=== PATIENT | female | born 1960 | race Caucasian/White ===

== ENCOUNTER → 2022-07-05 | Outpatient (CLI) | payer OTHER ==
[2022-07-05 18:12] LABS: HCT 39.1 % (37.2-46.3); HGB 13.2 g/dL (12.0-15.0); MCH 32.3 pg (27.0-32.0); MCHC 33.8 g/dL (32.0-37.0); MCV 95.6 fL (80.0-97.0); NRBC Per 100 WBC 0 /100 WBCS (0.0-0.0); Platelet Count 232 X 10*3/uL (140-440); RBC 4.09 X 10*6/uL (4.10-5.20); WBC 5.29 X 10*3/uL (4.50-10.00)
[2022-07-05 18:21] LABS: ALT 23 U/L (8-44); AST 29 U/L (13-35); Albumin 4.1 g/dL (3.8-4.9); Albumin/Globulin Ratio 1.55 (1.60-3.17); Alkaline Phosphatase 125 U/L (41-126); BUN/Creat Ratio 18.16 Ratio (12.00-20.00); Blood Urea Nitrogen 13.4 mg/dL (9.0-27.0); Carbon Dioxide 26.5 mmol/L (20.0-27.5); Chloride 101 mmol/L (96-109); Chol/HDL Ratio 3.76 Ratio; Globulin 2.6 g/dL (1.6-3.3); Glucose 90 mg/dL (70-110); Non-African American GFR(CKD) 87.1 (60.0-200.0); Potassium 4.7 mmol/L (3.5-5.5); Sodium 138 mmol/L (135-145); Total Protein 6.7 g/dL (6.2-8.2); VLDL Calculation 16.04 mg/dL (5.00-40.00)
[2022-07-05 18:24] LABS: Appearance,Urine Clear (Clear); Bilirubin,Urine Negative (Negative); Blood,Urine Negative (Negative); Color,Urine Yellow (Yellow); Ketones,Urine Negative (Negative); Nitrite,Urine Negative (Negative); Urobilinogen,Urine 0.2 (0.2,1.0)
== END | disposition home or self-care (01) ==
LOC: LABWHC1 12:01
PROVIDERS: ATTEND Family Medicine
DX: E66.01 Morbid (severe) obesity due to excess calories (principal)
CPT/HCPCS: 36415; 80053; 80061; 81003; 82306; 83036; 84439; 84443; 85027

== ENCOUNTER → 2022-07-16 | Outpatient (CLI) | payer OTHER ==
--- NOTE | 2022-07-20 20:21 | MM ---
Reason for Exam: Screening (asymptomatic). Last mammogram was performed 3 year(s) and 1 month(s) ago. Patient History: First Full-Term at age 29. Postmenopausal. Sister had breast cancer at or over age 50. Risk Values: Carina 5 year model risk: 2.7%. NCI Lifetime model risk: 12.1%. Prior Study Comparison: 06/29/2016 Bilateral MG screening mammo w CAD - 2, [facility]. 05/28/2019 Bilateral MG screening mammo w CAD - 2, [facility]. 06/11/2019 Right MG diagnostic mammo RT w CAD - 2, [facility]. Tissue Density: The breast tissue is heterogeneously dense. This may lower the sensitivity of mammography. Findings: Analyzed By CAD. Benign bilateral oil cyst calcifications. There is no suspicious group of microcalcifications or new suspicious mass in either breast. Overall Assessment: Benign, BI-RAD 2 Management: Screening Mammogram of both breasts in 1 year. 1. Patient should continue monthly self breast exams. 2. A clinical breast exam by your physician is recommended on an annual basis. 3. This exam should not preclude additional follow-up of suspicious palpable abnormalities. Electronically signed and approved by: Kelsy Campbell M.D. Radiologist
== END | disposition home or self-care (01) ==
LOC: RADMAMWWP 13:31
PROVIDERS: ATTEND Family Medicine
DX: Z12.31 Encounter for screening mammogram for malignant neoplasm of breast (principal); Z78.0 Asymptomatic menopausal state; Z80.3 Family history of malignant neoplasm of breast
CPT/HCPCS: 77063; 77067

== ENCOUNTER 2023-06-01 09:08 | Emergency (ER) | payer OTHER ==
[2023-06-01 09:36] VITALS: RESP 18
[2023-06-01 09:46] LABS: Basophils % (A) 0 %; Eosinophils # (A) 0.1 k/uL (0-0.7); Eosinophils % (A) 2 %; HCT 39.7 % (34.0-46.0); HGB 13.3 gm/dL (11.4-16.0); Lymphocytes # (A) 1.8 k/uL (1.0-4.8); Lymphocytes % (A) 29 %; MCH 32.7 pg (25.0-35.0); MCHC 33.6 g/dL (31.0-37.0); MCV 97.3 fL (80.0-100.0); Mean Platelet Volume 7.5; Monocytes # (A) 0.3 k/uL (0-1.0); Monocytes % (A) 5 %; Neutrophils # (A) 3.7 k/uL (1.3-7.7); Neutrophils % (A) 62 %; Platelet Count 210 k/uL (150-450); RBC 4.08 m/uL (3.80-5.40); RDW 11.6 % (11.5-15.5); WBC 6.1 k/uL (3.8-10.6)
--- NOTE | 2023-06-01 09:54 | XR ---
EXAMINATION TYPE: XR chest 2V DATE OF EXAM: 06/01/2023 COMPARISON: NONE TECHNIQUE: PA and lateral views submitted. HISTORY: Chest FINDINGS: The lungs are clear and there is no pneumothorax, pleural effusion, or focal pneumonia. Heart size normal and no overt failure. Osseous structures demonstrate hypertrophic and degenerative changes of the spine. Slight elevation right hemidiaphragm. AC joint arthropathy. Biapical pleural thickening. IMPRESSION: 1. No acute process.
[2023-06-01 09:58] LABS: Partial Thromboplastin Time 25.9 sec (22.0-30.0); Prothrombin Time 10.8 sec (10.0-12.5)
[2023-06-01 09:59] LABS: ALT 28 U/L (4-34); African American GFR (CKD) >90 (>60 ml/min/1.73 sqM); Anion Gap 11 mmol/L; Blood Urea Nitrogen 21 mg/dL (7-17); Calcium 9.2 mg/dL (8.4-10.2); Carbon Dioxide 25 mmol/L (22-30); Chloride 102 mmol/L (98-107); Glucose 89 mg/dL (74-99); Lipase 73 U/L (23-300); Non-African American GFR(CKD) >90 (>60 ml/min/1.73 sqM); Sodium 138 mmol/L (137-145); Total Bilirubin 0.6 mg/dL (0.2-1.3)
[2023-06-01 10:00] LABS: AST 41 U/L (14-36); Albumin 4.2 g/dL (3.5-5.0); Alkaline Phosphatase 104 U/L (38-126); Magnesium 1.8 mg/dL (1.6-2.3); Potassium 4.5 mmol/L (3.5-5.1); Total Protein 7.7 g/dL (6.3-8.2)
[2023-06-01 10:06] VITALS: TEMP 98.1
--- NOTE | 2023-06-01 11:13 | ED ---
Chest Pain HPI - General Chief Complaint: Chest Pain Stated Complaint: Abnormal EKG Time Seen by Provider: 06/01/23 09:24 Source: patient Mode of arrival: ambulatory Limitations: no limitations - History of Present Illness Initial Comments: 63-year-old female presents to the emergency department for chest pain. States that she started having some chest discomfort while at work. She has no history of cardiac disease and describes it as a sharp shooting sensation over the right side of her chest. Pain is not present at this time. She did not take anything to alleviate it. She had no associated shortness of breath. She went to her doctor's office where they completed an EKG. [place] as if the patient should have further workup in the emergency department. She denies any fevers, chills or cough. No nausea or vomiting. No strong family history of cardiac disease. No other alleviating, precipitating or modifying factors - Related Data Home Medications Medication Instructions Recorded Confirmed Cholecalciferol [Vitamin D3 (125 125 mcg PO DAILY 06/01/23 06/01/23 Mcg = 5000 Iu)] Pantoprazole [Protonix] 40 mg PO DAILY 06/01/23 06/01/23 Primidone [Mysoline] 25 mg PO DAILY 06/01/23 06/01/23 metFORMIN HCL ER [Glucophage XR] 500 mg PO DAILY 06/01/23 06/01/23 Allergies Allergy/AdvReac Type Severity Reaction Status Date / Time No Known Allergies Allergy Verified 06/01/23 11:13 Review of Systems ROS Statement: Those systems with pertinent positive or pertinent negative responses have been documented in the HPI. ROS Other: All systems not noted in ROS Statement are negative. Past Medical History Past Medical History: Diabetes Mellitus History of Any Multi-Drug Resistant Organisms: None Reported Past Surgical History: No Surgical Hx Reported Past Psychological History: No Psychological Hx Reported Smoking Status: Never smoker Past Alcohol Use History: Occasional Past Drug Use History: None Reported General Exam Limitations: no limitations General appearance: alert, in no apparent distress Head exam: Present: atraumatic, normocephalic, normal inspection Eye exam: Present: normal appearance, PERRL, EOMI. Absent: scleral icterus, conjunctival injection, periorbital swelling ENT exam: Present: normal exam, mucous membranes moist Neck exam: Present: normal inspection. Absent: tenderness, meningismus, lymphadenopathy Respiratory exam: Present: normal lung sounds bilaterally. Absent: respiratory distress, wheezes, rales, rhonchi, stridor Cardiovascular Exam: Present: regular rate, normal rhythm, normal heart sounds. Absent: systolic murmur, diastolic murmur, rubs, gallop, clicks GI/Abdominal exam: Present: soft, normal bowel sounds. Absent: distended, tenderness, guarding, rebound, rigid Extremities exam: Present: normal inspection, full ROM, normal capillary refill. Absent: tenderness, pedal edema, joint swelling, calf tenderness Back exam: Present: normal inspection Neurological exam: Present: alert, oriented X3, CN II-XII intact Psychiatric exam: Present: normal affect, normal mood Skin exam: Present: warm, dry, intact, normal color. Absent: rash Course Vital Signs 06/01/23 06/01/23 06/01/23 09:16 09:27 10:05 Temperature 98 F 98.1 F Pulse Rate 65 69 Pulse Rate [ 63 Public Information Relations Manager ] Respiratory 18 18 Rate Blood Pressure 132/84 132/70 O2 Sat by Pulse 98 96 Oximetry 06/01/23 11:05 Temperature Pulse Rate 65 Pulse Rate [ Public Information Relations Manager ] Respiratory 18 Rate Blood Pressure 122/69 O2 Sat by Pulse 97 Oximetry Chest Pain MDM - MDM Was pt. sent in by a medical professional or institution (, PA, DRAMATIC COACH, urgent care, hospital, or usp...) When possible be specific @ -Patient was sent in by her primary office Did you speak to anyone other than the patient for history (EMS, parent, family, police, friend...)? What history was obtained from this source @ -No Did you review nursing and triage notes (agree or disagree)? Why? @ -I reviewed and agree with nursing and triage notes Were old charts reviewed (outside hosp., previous admission, EMS record, old EKG, old radiological studies, urgent care reports/EKG's, usp records)? Report findings @ -No old charts were reviewed Differential Diagnosis (chest pain, altered mental status, abdominal pain women, abdominal pain men, vaginal bleeding, weakness, fever, dyspnea, syncope, headache, dizziness, GI bleed, back pain, seizure, CVA, palpatations, mental health, musculoskeletal)? @ -Differential Chest Pain: Stable Angina, Unstable Angina, STEMI, NSTEMI Aortic Dissection, Pneumothorax, Musculoskeletal, Esophageal Spasm GERD, Cholecystitis, Pancreatitis, Zoster, this is not meant to be an all-inclusive list. EKG interpreted by me (3pts min.). @ -Yes and demonstrates sinus rhythm with a rate of 69. MT interval 149. QRS 105. QTC of 427. No acute ST segment elevations or depressions X-rays interpreted by me (1pt min.). @ -Yes and demonstrates no acute process CT interpreted by me (1pt min.). @ -None done U/S interpreted by me (1pt. min.). @ -None done What testing was considered but not performed or refused? (CT, X-rays, U/S, labs)? Why? @ -None What meds were considered but not given or refused? Why? @ -None Did you discuss the management of the patient with other professionals (prof lane i.e. , PA, DRAMATIC COACH, lab, RT, psych nurse, bilingual social worker, attorney lawyer, teacher, chief juvenile probation officer, caseworker protective services)? Give summary @ -No Was smoking cessation discussed for >3mins.? @ -No Was critical care preformed (if so, how long)? @ -No Were there social determinants of health that impacted care today? How? (Homelessness, low income, unemployed, alcoholism, drug addiction, transportation, low edu. Level, literacy, decrease access to med. care, intermediate, rehab)? @ -No Was there de-escalation of care discussed even if they declined (Discuss DNR or withdrawal of care, Hospice)? DNR status @ -No What co-morbidities impacted this encounter? (DM, HTN, Smoking, COPD, CAD, Cancer, CVA, ARF, Chemo, Hep., AIDS, mental health diagnosis, sleep apnea, morbid obesity)? @ -Diabetes mellitus Was patient admitted / discharged? Hospital course, mention meds given and route, prescriptions, significant lab abnormalities, going to OR and other pertinent info. @ -Discharge. Upon arrival patient was evaluated in room 2. A thorough history and physical exam was performed. Laboratory studies are conducted. Chest x-rays performed. She remained pain free. I discussed results with the patient. Her heart score is 1. Because of this the patient can be discharged home and follow up with her primary care office. She will need stress testing and echo. Return to [facility] new or worsening symptoms per patient was agreeable to the plan and she was discharged in stable condition Undiagnosed new problem with uncertain prognosis? @ -Yes Drug Therapy requiring intensive monitoring for toxicity (Heparin, Nitro, Insulin, Cardizem)? @ -No Were any procedures done? @ -No Diagnosis/symptom? @ -Acute atypical chest pain Acute, or Chronic, or Acute on Chronic? @ -Acute Uncomplicated (without systemic symptoms) or Complicated (systemic symptoms)? @ -Complicated Side effects of treatment? @ -No Exacerbation, Progression, or Severe Exacerbation? @ -No Poses a threat to life or bodily function? How? (Chest pain, [place], [place], pneumonia, PE, COPD, DKA, ARF, appy, cholecystitis, CVA, Diverticulitis, Homicidal, Suicidal, threat to staff... and all critical care pts) @ -No Disposition Clinical Impression: Chest pain Disposition: HOME SELF-CARE Condition: Stable Instructions (If sedation given, give patient instructions): Chest Pain (ED) Additional Instructions: I recommend you monitor your symptoms. Follow-up with your primary care doctor and have an echo and Holter monitoring performed as well as a stress test. Return to the emergency department should you have any new or worsening symptoms Is patient prescribed a controlled substance at d/c from ED?: No Referrals: Clark Marc DO [Primary Care Provider] - 1-2 days Time of Disposition: 11:29
[2023-06-01 11:37] VITALS: BP 122/69; PULSE 65
== END 2023-06-01 11:42 | disposition home or self-care (01) ==
LOC: EC 09:08
DX: R07.89 Other chest pain (principal); E11.9 Type 2 diabetes mellitus without complications; Z79.84 Long term (current) use of oral hypoglycemic drugs; Z79.899 Other long term (current) drug therapy
CPT/HCPCS: 36415; 71046; 80053; 83690; 83735; 84484; 85025; 85610; 85730; 93005; 99285

== ENCOUNTER 2024-01-31 13:13 | Inpatient (IN) | payer OTHER ==
--- NOTE | 2024-01-31 13:40 | ED ---
General Adult HPI - General Chief complaint: Abdominal Pain Stated complaint: Abdominal pain Time Seen by Provider: 01/31/24 13:25 Source: patient, family, RN notes reviewed Mode of arrival: ambulatory Limitations: no limitations - History of Present Illness Initial comments: Patient is a 63-year-old female presenting to the emergency department with co ncerns with abdominal discomfort. Onset of symptoms was around 3 AM. Discomfort has somewhat improved. Patient did have nausea with 1 episode of vomiting. Discomfort is rated 4-5/10. Discomfort is epigastric. No constipation or diarrhea. No chest pain - Related Data Home Medications Medication Instructions Recorded Confirmed Cholecalciferol [Vitamin D3 (125 125 mcg PO DAILY 06/01/23 06/01/23 Mcg = 5000 Iu)] Pantoprazole [Protonix] 40 mg PO DAILY 06/01/23 06/01/23 Primidone [Mysoline] 25 mg PO DAILY 06/01/23 06/01/23 metFORMIN HCL ER [Glucophage XR] 500 mg PO DAILY 06/01/23 06/01/23 Allergies Allergy/AdvReac Type Severity Reaction Status Date / Time No Known Allergies Allergy Verified 06/01/23 11:13 Review of Systems ROS Statement: Those systems with pertinent positive or pertinent negative responses have been documented in the HPI. ROS Other: All systems not noted in ROS Statement are negative. Constitutional: Denies: fever Eyes: Denies: eye pain ENT: Denies: ear pain Respiratory: Denies: dyspnea Cardiovascular: Denies: chest pain Endocrine: Denies: fatigue Gastrointestinal: Reports: as per HPI, abdominal pain, nausea, vomiting Genitourinary: Denies: dysuria Past Medical History Past Medical History: Diabetes Mellitus, GERD/Reflux History of Any Multi-Drug Resistant Organisms: None Reported Past Surgical History: No Surgical Hx Reported Past Psychological History: No Psychological Hx Reported Smoking Status: Never smoker Past Alcohol Use History: Occasional Past Drug Use History: None Reported General Exam Limitations: no limitations General appearance: alert, in no apparent distress Head exam: Present: normocephalic Eye exam: Present: normal appearance Neck exam: Present: normal inspection Respiratory exam: Present: normal lung sounds bilaterally Cardiovascular Exam: Present: regular rate, normal rhythm Expanded Peripheral pulses: 2+: Posterior Tibialis (R), Posterior Tibialis (L) GI/Abdominal exam: Present: soft, tenderness (Mild to moderate epigastric tenderness), normal bowel sounds. Absent: distended, guarding, rebound, rigid, pulsatile mass Extremities exam: Present: normal inspection Neurological exam: Present: alert Psychiatric exam: Present: normal affect, normal mood Skin exam: Present: normal color Course Vital Signs 01/31/24 13:19 Temperature 98.3 F Pulse Rate 80 Respiratory 20 Rate Blood Pressure 117/51 O2 Sat by Pulse 98 Oximetry Medical Decision Making - Medical Decision Making Was pt. sent in by a medical professional or institution (, PA, ELECTRICIAN SHOP, urgent care, hospital, or fdc...) When possible be specific @ -No Did you speak to anyone other than the patient for history (EMS, parent, family, police, friend...)? What history was obtained from this source @ -No Did you review nursing and triage notes (agree or disagree)? Why? @ -I reviewed and agree with nursing and triage notes Were old charts reviewed (outside hosp., previous admission, EMS record, old EKG, old radiological studies, urgent care reports/EKG's, fdc records)? Report findings @ -No old charts were reviewed Differential Diagnosis (chest pain, altered mental status, abdominal pain women, abdominal pain men, vaginal bleeding, weakness, fever, dyspnea, syncope, headache, dizziness, GI bleed, back pain, seizure, CVA, palpatations, mental health, musculoskeletal)? @ -DM differential abdominal pain 1 differential Abdominal Pain Women: Appendicitis, Cholecystitis, diverticulosis, ischemic bowel, pancreatitis, hepatitis, UTI, gastroenteritis, AAA, incarcerated hernia, bowel obstruction, constipation, inflammatory bowel, hepatitis, peptic ulcer disease, splenic infarction, perforated viscus, vulvitis, ovarian torsion, PID, kidney stone, placenta abruption, this is not meant to be an all-inclusive list EKG interpreted by me (3pts min.). @ -As above X-rays interpreted by me (1pt min.). @ -None done CT interpreted by me (1pt min.). @ -CT scan abdomen pelvis does show some hyperemia of the gallbladder and wall U/S interpreted by me (1pt. min.). @ -None done What testing was considered but not performed or refused? (CT, X-rays, U/S, labs)? Why? @ -None What meds were considered but not given or refused? Why? @ -None Did you discuss the management of the patient with other professionals (professionals i.e. DrAna Rosa, PA, ELECTRICIAN SHOP, lab, RT, psych nurse, rn social work, director digital catalogue, teacher, chief lifestyle officer, clinical case manager)? Give summary @ -Case was discussed with Dr. Lynch will admit covering Dr. Marc Was smoking cessation discussed for >3mins.? @ -No Was critical care preformed (if so, how long)? @ -No Were there social determinants of health that impacted care today? How? (Homelessness, low income, unemployed, alcoholism, drug addiction, transportation, low edu. Level, literacy, decrease access to med. care, intermediate, rehab)? @ -No Was there de-escalation of care discussed even if they declined (Discuss DNR or withdrawal of care, Hospice)? DNR status @ -No What co-morbidities impacted this encounter? (DM, HTN, Smoking, COPD, CAD, Cancer, CVA, ARF, Chemo, Hep., AIDS, mental health diagnosis, sleep apnea, mor bid obesity)? @ -None Was patient admitted / discharged? Hospital course, mention meds given and ro sarah, prescriptions, significant lab abnormalities, going to OR and other pertinent info. @ -Patient presents with epigastric pain. Elevated liver enzymes and concern for gallbladder disease on CT scan. Patient will be admitted with consults for surgery and gastrointestinal. Ultrasound will be ordered. Admission orders written. Undiagnosed new problem with uncertain prognosis? @ -No Drug Therapy requiring intensive monitoring for toxicity (Heparin, Nitro, Insulin, Cardizem)? @ -No Were any procedures done? @ -No Diagnosis/symptom? @ -Cholecystitis Acute, or Chronic, or Acute on Chronic? @ -Acute Uncomplicated (without systemic symptoms) or Complicated (systemic symptoms)? @ -Located with elevated liver enzymes Side effects of treatment? @ -No Exacerbation, Progression, or Severe Exacerbation? @ -No Poses a threat to life or bodily function? How? (Chest pain, [place], [place], pneumonia, PE, COPD, DKA, ARF, appy, cholecystitis, CVA, Diverticulitis, Homicidal, Suicidal, threat to staff... and all critical care pts) @ -No - Lab Data Result diagrams: 01/31/24 13:54 01/31/24 13:54 Lab Results 07/30/24 07/30/24 Range/Units 13:54 13:54 WBC 9.5 (3.8-10.6) k/uL RBC 4.10 (3.80-5.40) m/uL Hgb 13.5 (11.4-16.0) gm/dL Hct 39.9 (34.0-46.0) % MCV 97.3 (80.0-100.0) fL MCH 32.9 (25.0-35.0) pg MCHC 33.8 (31.0-37.0) g/dL RDW 12.0 (11.5-15.5) % Plt Count 199 (150-450) k/uL MPV 7.1 Neutrophils % 92 % Lymphocytes % 3 % Monocytes % 4 % Eosinophils % 1 % Basophils % 0 % Neutrophils # 8.7 H (1.3-7.7) k/uL Lymphocytes # 0.3 L (1.0-4.8) k/uL Monocytes # 0.3 (0-1.0) k/uL Eosinophils # 0.1 (0-0.7) k/uL Basophils # 0.0 (0-0.2) k/uL Sodium 136 L (137-145) mmol/L Potassium 3.9 (3.5-5.1) mmol/L Chloride 105 (98-107) mmol/L Carbon Dioxide 24 (22-30) mmol/L Anion Gap 7 mmol/L BUN 19 H (7-17) mg/dL Creatinine 0.53 (0.52-1.04) mg/dL Est GFR (CKD-EPI)AfAm >90 (>60 ml/min/1.73 sqM) Est GFR (CKD-EPI)NonAf >90 (>60 ml/min/1.73 sqM) Glucose 130 H (74-99) mg/dL Calcium 8.9 (8.4-10.2) mg/dL Total Bilirubin 2.3 H (0.2-1.3) mg/dL AST 836 H (14-36) U/L ALT 449 H (4-34) U/L Alkaline Phosphatase 162 H (38-126) U/L Total Protein 7.0 (6.3-8.2) g/dL Albumin 4.1 (3.5-5.0) g/dL Amylase 53 (30-110) U/L Lipase 153 (23-300) U/L Disposition Clinical Impression: Cholecystitis Disposition: ADMITTED IP TO THIS HOSP Condition: Serious Is patient prescribed a controlled substance at d/c from ED?: No Referrals: Clark Marc DO [Primary Care Provider] - 1-2 days Time of Disposition: 16:46
[2024-01-31] MEDS: ONDANSETRON 4 MG/2 ML VIAL IVP STA (13:58)
[2024-01-31 13:59] LABS: Basophils % (A) 0 %; Eosinophils # (A) 0.1 k/uL (0-0.7); Eosinophils % (A) 1 %; HCT 39.9 % (34.0-46.0); HGB 13.5 gm/dL (11.4-16.0); Lymphocytes # (A) 0.3 k/uL (1.0-4.8); Lymphocytes % (A) 3 %; MCH 32.9 pg (25.0-35.0); MCHC 33.8 g/dL (31.0-37.0); MCV 97.3 fL (80.0-100.0); Mean Platelet Volume 7.1; Monocytes # (A) 0.3 k/uL (0-1.0); Monocytes % (A) 4 %; Neutrophils # (A) 8.7 k/uL (1.3-7.7); Neutrophils % (A) 92 %; Platelet Count 199 k/uL (150-450); WBC 9.5 k/uL (3.8-10.6)
[2024-01-31] MEDS: SODIUM CHLORIDE 0.9% 1,000 ML IV STA (13:59)
[2024-01-31] MEDS: FAMOTIDINE 20 MG/2 ML VIAL IV STA (13:59)
[2024-01-31 14:48] LABS: ALT 449 U/L (4-34); African American GFR (CKD) >90 (>60 ml/min/1.73 sqM); Amylase 53 U/L (30-110); Anion Gap 7 mmol/L; Blood Urea Nitrogen 19 mg/dL (7-17); Calcium 8.9 mg/dL (8.4-10.2); Carbon Dioxide 24 mmol/L (22-30); Chloride 105 mmol/L (98-107); Glucose 130 mg/dL (74-99); Lipase 153 U/L (23-300); Non-African American GFR(CKD) >90 (>60 ml/min/1.73 sqM); Potassium 3.9 mmol/L (3.5-5.1); Sodium 136 mmol/L (137-145); Total Bilirubin 2.3 mg/dL (0.2-1.3)
[2024-01-31 14:50] LABS: Albumin 4.1 g/dL (3.5-5.0); Alkaline Phosphatase 162 U/L (38-126)
[2024-01-31 14:54] LABS: AST 836 U/L (14-36)
--- NOTE | 2024-01-31 15:33 | CT ---
EXAMINATION TYPE: CT abdomen pelvis w con CT DLP: 1508.2 mGycm, Automated exposure control for dose reduction was used. DATE OF EXAM: 01/31/2024 3:19 PM COMPARISON: None CLINICAL INDICATION:Female, 63 years old with history of abdominal pain; abdominal pain, nausea, vomi ting TECHNIQUE: Axial CT abdomen pelvis w con;Sagittal and coronal reformats were created on a separate w orkstation. Contrast used:100 mL of Isovue 300 with IV Contrast, (none if empty) Oral contrast used: without Oral Contrast (none if empty) FINDINGS: LOWER CHEST: Unremarkable ABDOMEN LIVER: Unremarkable GALLBLADDER AND BILE DUCTS: Hyperemia of the extrahepatic biliary systeme including the campos of the common bile duct common hepatic duct and the gallbladder series 202 image 43 PANCREAS: Unremarkable. SPLEEN: Hypoechoic dense probable 9 mm cyst. Probable right hepatic dome subcentimeter cysts. ADRENAL GLANDS: Unremarkable. KIDNEYS AND URETERS: Nonobstructing left inferior 2 mm calculus. PELVIS BLADDER: Unremarkable REPRODUCTIVE: Unremarkable. ABDOMEN & PELVIS STOMACH AND BOWEL: No evidence of bowel obstruction. Scattered colonic diverticula. The appendix is n ormal. PERITONEUM/RETROPERITONEUM: No evidence of pneumoperitoneum or free fluid. VASCULATURE: No evidence of aortic aneurysm. MUSCULOSKELETAL: No acute osseous abnormalities LYMPH NODES: No gross evidence for lymphadenopathy. SOFT TISSUE/ABDOMINAL WALL: Unremarkable IMPRESSION: 1. Hyperemia of the extrahepatic biliary wall and prominence of the gallbladder wall with hyperemia. Correlate for signs and symptoms of ascending cholangitis and acute cholecystitis. 2. No evidence for bowel junction. 3. Nonobstructing left renal calculus. 4. Colonic diverticulosis.
[2024-01-31] MEDS ORDERED: NALOXONE 0.4 MG/ML 1 ML VIAL IV PRN (16:47)
[2024-01-31] MEDS: AMPICILLIN-SULBACTAM 3 GM in SODIUM CHLORIDE 0.9% 100 ML IVPB SCH (18:08)
[2024-01-31] MEDS: SODIUM CHLORIDE 0.9% 1,000 ML IV SCH (18:09)
--- NOTE | 2024-01-31 18:09 | US ---
EXAMINATION TYPE: US gallbladder DATE OF EXAM: 01/31/2024 COMPARISON: CT today CLINICAL INDICATION: Female, 63 years old with history of Cholecystitis; Patient states right upper q uadrant abdominal pain and nausea TECHNIQUE: Multiple sonographic images of the right upper quadrant are obtained. FINDINGS: EXAM MEASUREMENTS: Liver Length: 14.4 cm Gallbladder Wall: 0.3 cm CBD: 0.8 cm Right Kidney: 11.2 x 5.1 x 5.7 cm DISTANCE LEARNING COORDINATOR NOTES:Limited due to body habitus and overlying gas Pancreas: Obscured by bowel gas Liver: Visualized portions appear wnl, portions obscured by gas Gallbladder: Wall measures 0.3cm. Pericholecystic fluid seen Evidence for sonographic Paredes's sign: No CBD: Slightly dilated Right Kidney: wnl as best seen today, inferior pole obscured by gas IMPRESSION: Unremarkable exam. No ultrasound findings that would explain the patient's symptoms.
[2024-01-31] MEDS: LACTATED RINGERS 1,000 ML IV SCH (21:31)
[2024-01-31] MEDS: ENOXAPARIN 40 MG/0.4 ML SYRINGE SQ SCH (21:32)
[2024-01-31] MEDS: MORPHINE SULFATE 4 MG/ML SYRINGE IV PRN (21:36)
--- NOTE | 2024-01-31 23:43 | P.HPIM ---
History of Present Illness H&P Date: 01/31/24 Chief Complaint: Abdominal pain This is a pleasant 63-year-old patient follows Dr. Marc. 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 Having some nausea. When she came in the morning she started having more pain across the belly. No central. Having chills. Normally had has about 3 bowel movements a week. Last bowel movement was yesterday. Review of systems: GEN.: Chills tired EYES: None HEENT: None NECK: None RESPIRATORY: None CARDIOVASCULAR: None GASTROINTESTINAL: Abdominal pain] GENITOURINARY: None MUSCULOSKELETAL: None LYMPHATICS: None HEMATOLOGICAL: None PSYCHIATRY: None NEUROLOGICAL: None Social history: . No smoking no alcohol. Works midnight at the factory Physical examination: VITAL SIGNS: 98.2, 79, 18, 134/81, 92% room air GENERAL: BMI 37.1, reclining in bed slightly uncomfortable. EYES: Pupils equal. Conjunctiva brooke l. HEENT: External appearance of nose and ears normal, oral cavity grossly normal. NECK: JVD not raised; masses not palpable. HEART: First and second heart sounds are normal; no edema. LUNGS: Respiratory rate normal; clear to auscultation. ABDOMEN: Soft, tenderness, no guarding rigidity, liver spleen not palpable, no masses palpable. PSYCH: Alert and oriented x3; mood and affect brooke l. MUSCULOSKELETAL:No Clubbing/cyanosis;muscles-grossly intact NEUROLOGICAL: Cranial nerves grossly intact; no facial asymmetry, power and sensation grossly intact. LYMPHATICS: No lymph nodes palpable in the axilla and neck INVESTIGATIONS, reviewed in the clinical context: January 30: White count 9.5 hemoglobin 13.5 platelets 199 sodium 136 potassium 3.9 creatinine 0.53 Total bilirubin 2.3 AST [address] abdomen pelvis: Hyperemia of the extrahepatic biliary wall and prominence of the gallbladder wall with hyperemia. Nonobstructing left renal calculus. Colonic diverticulosis -Assessment plan: -Abdominal pain with nausea chills. Patient has a more hepatitic picture. Nonobstructive. Possible ascending cholangitis. Acute cholecystitis cannot be ruled out. IV Unasyn. GI and surgery consulted. IV fluids -Primary osteoarthritis Pain control -Essential hypertension Primidone -GERD Protonix -Sigmoid diverticulosis asymptomatic -Left kidney stone, asymptomatic Discussed with patient. Given the complexity and severity of patient's condition expect the patient to be in the hospital at least for 2 overnights Past Medical History Past Medical History: Diabetes Mellitus, GERD/Reflux Additional Past Medical History / Comment(s): tremors, arthritis History of Any Multi-Drug Resistant Organisms: None Reported Past Surgical History: Tonsillectomy, Tubal Ligation Additional Past Surgical History / Comment(s): 2 births, neromas in feet Past Anesthesia/Blood Transfusion Reactions: No Reported Reaction Past Psychological History: No Psychological Hx Reported Smoking Status: Never smoker Past Alcohol Use History: Occasional Past Drug Use History: None Reported - Past Family History Mother Family Medical History: Diabetes Mellitus Brother(s) Family Medical History: AFIB, AICD/Pacemaker Medications and Allergies Home Medications Medication Instructions Recorded Confirmed Type Cholecalciferol [Vitamin D3 (125 125 mcg PO DAILY 06/01/23 01/31/24 History Mcg = 5000 Iu)] Pantoprazole [Protonix] 40 mg PO DAILY 06/01/23 01/31/24 History Primidone [Mysoline] 25 mg PO DAILY 06/01/23 01/31/24 History Celecoxib [CeleBREX] 200 mg PO BID PRN 01/31/24 01/31/24 History Allergies Allergy/AdvReac Type Severity Reaction Status Date / Time No Known Allergies Allergy Verified 01/31/24 17:52 Physical Exam Vitals: Vital Signs Temp Pulse Pulse Resp BP BP Pulse Ox 01/31/24 18:35 98.2 F 79 18 134/81 92 L 01/31/24 17:54 80 18 122/76 97 01/31/24 13:19 98.3 F 80 20 117/51 98 Intake and Output 01/31/24 01/31/24 02/01/24 14:59 22:59 06:59 Other: Voiding Method Toilet Weight 104.326 kg 104.326 kg Results CBC & Chem 7: 01/31/24 13:54 01/31/24 13:54 Labs: Abnormal Lab Results - Last 24 Hours (Table) 01/31/24 01/31/24 Range/Units 13:54 13:54 Neutrophils # 8.7 H (1.3-7.7) k/uL Lymphocytes # 0.3 L (1.0-4.8) k/uL Sodium 136 L (137-145) mmol/L BUN 19 H (7-17) mg/dL Glucose 130 H (74-99) mg/dL Total Bilirubin 2.3 H (0.2-1.3) mg/dL AST 836 H (14-36) U/L ALT 449 H (4-34) U/L Alkaline Phosphatase 162 H (38-126) U/L Thrombosis Risk Factor Assmnt - Choose All That Apply Any of the Below Risk Factors Present?: No Other Risk Factors: No Each Risk Factor Represents 2 Points: Age 61-74 years Other congenital or acquired thrombophilia - If yes, enter type in comment: No Thrombosis Risk Factor Assessment Total Risk Factor Score: 2 Thrombosis Risk Factor Assessment Level: Very Low Risk
[2024-02-01 08:02] LABS: Basophils % (A) 0 %; Eosinophils # (A) 0.1 k/uL (0-0.7); Eosinophils % (A) 1 %; Lymphocytes # (A) 0.6 k/uL (1.0-4.8); Lymphocytes % (A) 5 %; MCH 32.3 pg (25.0-35.0); MCHC 32.5 g/dL (31.0-37.0); MCV 99.5 fL (80.0-100.0); Mean Platelet Volume 7.9; Monocytes # (A) 0.6 k/uL (0-1.0); Monocytes % (A) 4 %; Neutrophils # (A) 11.6 k/uL (1.3-7.7); Neutrophils % (A) 90 %; Platelet Count 181 k/uL (150-450); RBC 4.02 m/uL (3.80-5.40); RDW 12.7 % (11.5-15.5); WBC 12.9 k/uL (3.8-10.6)
[2024-02-01 08:23] LABS: ALT 356 U/L (4-34); AST 362 U/L (14-36); African American GFR (CKD) >90 (>60 ml/min/1.73 sqM); Albumin 3.1 g/dL (3.5-5.0); Alkaline Phosphatase 152 U/L (38-126); Amylase 33 U/L (30-110); Anion Gap 4 mmol/L; Blood Urea Nitrogen 12 mg/dL (7-17); Calcium 8.4 mg/dL (8.4-10.2); Carbon Dioxide 27 mmol/L (22-30); Chloride 105 mmol/L (98-107); Glucose 95 mg/dL (74-99); Lipase 38 U/L (23-300); Non-African American GFR(CKD) >90 (>60 ml/min/1.73 sqM); Potassium 3.8 mmol/L (3.5-5.1); Sodium 136 mmol/L (137-145); Total Bilirubin 3.3 mg/dL (0.2-1.3); Total Protein 5.9 g/dL (6.3-8.2)
[2024-02-01] MEDS: PANTOPRAZOLE 40 MG/10 ML VIAL IV SCH (08:37)
--- NOTE | 2024-02-01 14:33 | P.CONS ---
History of Present Illness - Reason for Consult Consult date: 02/01/24 Cholecystitis Requesting physician: Raul Pierson - Chief Complaint Abdominal pain - History of Present Illness This is a pleasant 63-year-old female with a past medical history of diabetes melitis and GERD scented to the emergency department yesterday afternoon with complaints of onset of abdominal pain that started Tuesday night and was associated with nausea it came and went away and then came back yesterday with pain to her lower back, head and neck. She also states that she had chills and sweats. Her workup in the emergency department showed elevated LFTs and emory irubin she had a CT of the abdomen pelvis and abdominal ultrasound. CT abdomen shows cholecystitis questionable ascending cholangitis and ultrasound again showed cholecystitis no gallbladder stones minimally dilated CBD 0.8 cm. Gastroenterology was consulted for cholecystitis. Patient's been afebrile since here in the hospital. No leukocytosis on admission however today mild leukocytosis with WBC of 12.9. Total bilirubin on admission was 2.3 today 3.3 AST ALT and alkaline phosphatase all trending down. No elevation of amylase or lipase. Patient was started on IV Unasyn. She currently denies any abdominal pain, no nausea or vomiting. States that most of her discomfort is in her neck or lower back and headache. Review of Systems REVIEW OF SYSTEMS: CARDIOPULMONARY: No chest pain or shortness of breath. Gastrointestinal: Abdominal pain, now improved. Nausea no vomiting. No hematemesis, coffee-ground emesis. No rectal bleeding, or melena. GENITOURINARY: No dysuria or hematuria. MUSCULOSKELETAL: Reports normal range of motion., Joint pain. Complains of back pain and neck pain SKIN: No rashes. No jaundice. ENDOCRINE: No chills, fevers. No excessive weight gain or loss. No polydipsia or polyuria. PSYCHIATRIC: Unremarkable. NEUROLOGY: No change in mental status. Denies dizziness, positive for headache. ENT: Vision unremarkable. CONSTITUTIONAL: No recent weight loss. No fever, chills, night sweats. Past Medical History Past Medical History: Diabetes Mellitus, GERD/Reflux Additional Past Medical History / Comment(s): tremors, arthritis History of Any Multi-Drug Resistant Organisms: None Reported Past Surgical History: Tonsillectomy, Tubal Ligation Additional Past Surgical History / Comment(s): 2 births, neromas in feet Past Anesthesia/Blood Transfusion Reactions: No Reported Reaction Past Psychological History: No Psychological Hx Reported Smoking Status: Never smoker Past Alcohol Use History: Occasional Past Drug Use History: None Reported - Past Family History Mother Family Medical History: Diabetes Mellitus Brother(s) Family Medical History: AFIB, AICD/Pacemaker Medications and Allergies Home Medications Medication Instructions Recorded Confirmed Type Cholecalciferol [Vitamin D3 (125 125 mcg PO DAILY 06/01/23 01/31/24 History Mcg = 5000 Iu)] Pantoprazole [Protonix] 40 mg PO DAILY 06/01/23 01/31/24 History Primidone [Mysoline] 25 mg PO DAILY 06/01/23 01/31/24 History Celecoxib [CeleBREX] 200 mg PO BID PRN 01/31/24 01/31/24 History Allergies Allergy/AdvReac Type Severity Reaction Status Date / Time No Known Allergies Allergy Verified 01/31/24 17:52 Physical Exam Vitals: Vital Signs Temp Pulse Pulse Resp BP BP Pulse Ox 02/01/24 07:00 98.2 F 66 16 96/61 95 02/01/24 01:38 98.8 F 81 18 99/65 90 L 01/31/24 18:35 98.2 F 79 18 134/81 92 L 01/31/24 17:54 80 18 122/76 97 01/31/24 13:19 98.3 F 80 20 117/51 98 Intake and Output 01/31/24 02/01/24 02/01/24 22:59 06:59 14:59 Other: Voiding Method Toilet Toilet # Voids 0 # Bowel Movements 0 Weight 104.326 kg General appearance: The patient is alert, oriented, appears in no acute distress. HET: Head is normocephalic and atraumatic. Pupils are equal and reactive. Neck: Supple. Heart: Regular. Lungs: Equal expansion, normal respiratory effort. Abdomen: Soft, obese, nontender, nondistended. Extremities: Normal skin color and turgor. Neurological: No focal deficits. Strength and sensation are grossly intact. Results CBC & Chem 7: 02/01/24 07:15 02/01/24 07:15 Labs: Abnormal Lab Results - Last 24 Hours (Table) 01/31/24 01/31/24 02/01/24 Range/Units 13:54 13:54 07:15 WBC 12.9 H (3.8-10.6) k/uL Neutrophils # 8.7 H 11.6 H (1.3-7.7) k/uL Lymphocytes # 0.3 L 0.6 L (1.0-4.8) k/uL Sodium 136 L (137-145) mmol/L BUN 19 H (7-17) mg/dL Glucose 130 H (74-99) mg/dL Total Bilirubin 2.3 H (0.2-1.3) mg/dL AST 836 H (14-36) U/L ALT 449 H (4-34) U/L Alkaline Phosphatase 162 H (38-126) U/L Comments: CT abdomen pelvis with contrast reports hyperemia of the extrahepatic biliary wall and prominence of the gallbladder wall with hyperemia. Correlate for signs and symptoms of the ascending cholangitis and acute cholecystitis. No evidence for bowel junction. Nonobstructing left renal calculus. Colonic diverticulosis. Gallbladder ultrasound reports unremarkable exam. No ultrasound findings that would explain patient's symptoms. Assessment and Plan (1) Elevated LFTs Narrative/Plan: 63-year-old female presenting with abdominal pain now improved with multiple symptoms of pain and body aches and back head and neck had elevated LFTs and CT exam with findings of Radha cystitis. Patient denies any history of liver disease. Labs with cholestatic pattern, however CT abdomen pelvis with no evidence of gallstones as well as gallbladder ultrasound. Need to rule out possible choledocholithiasis, MRCP ordered. Current Visit: Yes Status: Acute Code(s): R79.89 - OTHER SPECIFIED ABNORMAL FINDINGS OF BLOOD CHEMISTRY SNOMED Code(s): 320583149 (2) Cholecystitis Current Visit: Yes Status: Acute Code(s): K81.9 - CHOLECYSTITIS, UNSPECIFIED SNOMED Code(s): 25061712 Plan: 1. Continue symptomatic and supportive care 2. N.p.o. for MRCP, may have clear liquid diet following with n.p.o. after midnight 3. Antiemetics as needed 4. Protonix 40 mg daily GI prophylaxis 5. MRCP ordered 6. Continue with recommendations from general surgery 7. Daily CBC, CMP, INR 8. Further recommendations forthcoming per gastroenterology pending clinical course Thank you for this consultation, we will continue to follow. Dr. Juan Soriano I agree with the dictator's note, documented as a scribe by Abril Saucedo.
--- NOTE | 2024-02-01 15:44 | P.GSCN ---
History of Present Illness Consult date: 02/01/24 History of present illness: CHIEF COMPLAINT: Abdominal pain HISTORY OF PRESENT ILLNESS: This is a 63-year-old female who presented with pain across upper abdomen that started at 3 AM this morning. She has been having nausea and vomiting. She reports that her urine has been dark. She was found to have elevated liver enzymes and elevated total bilirubin. She has CT scan abdomen that reported hyperemia of the extrahepatic biliary wall and prominence of the gallbladder wall with hyperemia. Correlate for signs and symptoms of ascending cholangitis and acute cholecystitis. An abdominal ultrasound had evidence of pericholecystic fluid. But reports unremarkable exam. Patient does report having chills and sweats. White count elevated 12.9. She is on antibiot ics. She has been evaluated by GI service and scheduled for an MRCP PAST MEDICAL HISTORY: Diabetes, GERD PAST SURGICAL HISTORY: Tubal ligation MEDICATIONS: See below ALLERGIES: See below SOCIAL HISTORY: No illicit drug use. REVIEW OF SYSTEMS: CONSTITUTIONAL: Denies fever or chills. HEENT: Denies blurred vision, vision changes, or eye pain. Denies hemoptysis CARDIOVASCULAR: Denies chest pain or pressure. RESPIRATORY: No shortness of breath. GASTROINTESTINAL: See HPI for pertinent findings HEMATOLOGIC: Denies bleeding disorders. GENITOURINARY: Denies any blood in urine or increased urinary frequency. SKIN: Denies pruitis. Denies rash. PHYSICAL EXAM: VITAL SIGNS: Reviewed GENERAL: Well-developed in no acute distress. HEENT: Extraocular movements grossly intact. Moist buccal mucosa. Head is atraumatic, normocephalic. No nasal drainage. ABDOMEN: Soft. Nondistended. Tenderness right upper quadrant with palpation. Minimal tenderness across lower abdomen NEUROLOGIC: Alert and oriented. Cranial nerves II through XII grossly intact. LABORATORY DATA: WBC 12.9 Hgb 13 platelets 181 Sodium 136 potassium 3.8 creatinine 0.64 Total bilirubin 3.3 liver enzymes elevated but trending downwards Lipase 38 IMAGING: CT scan abdomen pelvis reports hyperemia of the extrahepatic biliary wall and prominence of the gallbladder wall with hyperemia. No evidence for bowel o bstruction. Nonobstructing left renal calculus. Colonic diverticulosis. Gallbladder ultrasound reports unremarkable exam. Pericholecystic fluid noted. ASSESSMENT: 1. Right upper quadrant abdominal pain with elevated LFTs and total bilirubin 2. Cholecystitis PLAN: -Patient is tentatively scheduled for a laparoscopic cholecystectomy tomorrow with Dr. Reilly -GI service has patient scheduled for MRCP -N.p.o. after midnight -Continue antibiotics -Continue IV fluids Physician Affiliate Manager note has been reviewed by physician. Signing provider agrees with the documented findings, assessment, and plan of care. Past Medical History Past Medical History: Diabetes Mellitus, GERD/Reflux Additional Past Medical History / Comment(s): tremors, arthritis History of Any Multi-Drug Resistant Organisms: None Reported Past Surgical History: Tonsillectomy, Tubal Ligation Additional Past Surgical History / Comment(s): 2 births, neromas in feet Past Anesthesia/Blood Transfusion Reactions: No Reported Reaction Past Psychological History: No Psychological Hx Reported Smoking Status: Never smoker Past Alcohol Use History: Occasional Past Drug Use History: None Reported - Past Family History Mother Family Medical History: Diabetes Mellitus Brother(s) Family Medical History: AFIB, AICD/Pacemaker Medications and Allergies Home Medications Medication Instructions Recorded Confirmed Type Cholecalciferol [Vitamin D3 (125 125 mcg PO DAILY 06/01/23 01/31/24 History Mcg = 5000 Iu)] Pantoprazole [Protonix] 40 mg PO DAILY 06/01/23 01/31/24 History Primidone [Mysoline] 25 mg PO DAILY 06/01/23 01/31/24 History Celecoxib [CeleBREX] 200 mg PO BID PRN 01/31/24 01/31/24 History Allergies Allergy/AdvReac Type Severity Reaction Status Date / Time No Known Allergies Allergy Verified 01/31/24 17:52 Surgical - Exam Vital Signs Temp Pulse Resp BP Pulse Ox 98.3 F 80 20 117/51 98 01/31/24 13:19 01/31/24 13:19 01/31/24 13:19 01/31/24 13:19 01/31/24 13:19 Results - Labs 02/01/24 07:15 02/01/24 07:15 Abnormal Lab Results - Last 24 Hours (Table) 01/31/24 01/31/24 02/01/24 Range/Units 13:54 13:54 07:15 WBC 12.9 H (3.8-10.6) k/uL Neutrophils # 8.7 H 11.6 H (1.3-7.7) k/uL Lymphocytes # 0.3 L 0.6 L (1.0-4.8) k/uL Sodium 136 L (137-145) mmol/L BUN 19 H (7-17) mg/dL Glucose 130 H (74-99) mg/dL Total Bilirubin 2.3 H (0.2-1.3) mg/dL AST 836 H (14-36) U/L ALT 449 H (4-34) U/L Alkaline Phosphatase 162 H (38-126) U/L Total Protein (6.3-8.2) g/dL Albumin (3.5-5.0) g/dL 02/01/24 Range/Units 07:15 WBC (3.8-10.6) k/uL Neutrophils # (1.3-7.7) k/uL Lymphocytes # (1.0-4.8) k/uL Sodium 136 L (137-145) mmol/L BUN (7-17) mg/dL Glucose (74-99) mg/dL Total Bilirubin 3.3 H (0.2-1.3) mg/dL AST 362 H (14-36) U/L ALT 356 H (4-34) U/L Alkaline Phosphatase 152 H (38-126) U/L Total Protein 5.9 L (6.3-8.2) g/dL Albumin 3.1 L (3.5-5.0) g/dL Diabetes panel 01/31/24 02/01/24 Range/Units 13:54 07:15 Sodium 136 L 136 L (137-145) mmol/L Potassium 3.9 3.8 (3.5-5.1) mmol/L Chloride 105 105 (98-107) mmol/L Carbon Dioxide 24 27 (22-30) mmol/L BUN 19 H 12 (7-17) mg/dL Creatinine 0.53 0.64 (0.52-1.04) mg/dL Glucose 130 H 95 (74-99) mg/dL Calcium 8.9 8.4 (8.4-10.2) mg/dL AST 836 H 362 H (14-36) U/L ALT 449 H 356 H (4-34) U/L Alkaline Phosphatase 162 H 152 H (38-126) U/L Total Protein 7.0 5.9 L (6.3-8.2) g/dL Albumin 4.1 3.1 L (3.5-5.0) g/dL Calcium panel 01/31/24 02/01/24 Range/Units 13:54 07:15 Calcium 8.9 8.4 (8.4-10.2) mg/dL Albumin 4.1 3.1 L (3.5-5.0) g/dL Pituitary panel 01/31/24 02/01/24 Range/Units 13:54 07:15 Sodium 136 L 136 L (137-145) mmol/L Potassium 3.9 3.8 (3.5-5.1) mmol/L Chloride 105 105 (98-107) mmol/L Carbon Dioxide 24 27 (22-30) mmol/L BUN 19 H 12 (7-17) mg/dL Creatinine 0.53 0.64 (0.52-1.04) mg/dL Glucose 130 H 95 (74-99) mg/dL Calcium 8.9 8.4 (8.4-10.2) mg/dL Adrenal panel 01/31/24 02/01/24 Range/Units 13:54 07:15 Sodium 136 L 136 L (137-145) mmol/L Potassium 3.9 3.8 (3.5-5.1) mmol/L Chloride 105 105 (98-107) mmol/L Carbon Dioxide 24 27 (22-30) mmol/L BUN 19 H 12 (7-17) mg/dL Creatinine 0.53 0.64 (0.52-1.04) mg/dL Glucose 130 H 95 (74-99) mg/dL Calcium 8.9 8.4 (8.4-10.2) mg/dL Total Bilirubin 2.3 H 3.3 H (0.2-1.3) mg/dL AST 836 H 362 H (14-36) U/L ALT 449 H 356 H (4-34) U/L Alkaline Phosphatase 162 H 152 H (38-126) U/L Total Protein 7.0 5.9 L (6.3-8.2) g/dL Albumin 4.1 3.1 L (3.5-5.0) g/dL
--- NOTE | 2024-02-01 18:04 | P.PN ---
Progress Note - Text Progress Note Date: 02/01/24 Chief Complaint: Abdominal pain This is a pleasant 63-year-old patient follows Dr. Marc. 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 Having some nausea. When she came in the morning she started having more pain across the belly. No central. Having chills. Normally had has about 3 bowel movements a week. Last bowel movement was yesterday. January 31: Patient was admitted with abdominal pain. [place]ounds to have acute cholecystitis/ascending cholangitis. Some improvement in abdominal pain today. Slight improvement in LFTs. No fever. MRCP ordered by GI. Slight improvement abdominal pain. Active Medications Enoxaparin Sodium (Enoxaparin 40 Mg/0.4 Ml Syringe) 40 mg SQ HS [facility] Last Admin: 01/31/24 21:32 Dose: 40 mg Ampicillin Sodium/Sulbactam (Sodium 3 gm/ Sodium Chloride) 100 mls @ 200 mls/hr IVPB Q8HR [facility]; Protocol Last Admin: 02/01/24 16:44 Dose: 200 mls/hr Sodium Chloride (Saline 0.9%) 1,000 mls @ 130 mls/hr IV .Q7H42M [facility] Last Admin: 02/01/24 16:44 Dose: 130 mls/hr Lactated Ringer's (Lactated Ringers) 1,000 mls @ 125 mls/hr IV .Q8H [facility] Last Admin: 02/01/24 12:44 Dose: Not Given Morphine Sulfate (Morphine Sulfate 4 Mg/Ml Syringe) 4 mg IV Q4HR PRN PRN Reason: Severe Pain (Scale 7 to 10) Last Admin: 02/01/24 08:55 Dose: 4 mg Naloxone HCl (Naloxone 0.4 Mg/Ml 1 Ml Vial) 0.2 mg IV Q2M PRN PRN Reason: Opioid Reversal Ondansetron HCl (Ondansetron 4 Mg/2 Ml Vial) 4 mg IVP Q8HR PRN PRN Reason: Nausea And Vomiting Pantoprazole Sodium (Pantoprazole 40 Mg/10 Ml Vial) 40 mg IV DAILY [facility] Last Admin: 02/01/24 08:37 Dose: 40 mg Social history: . No smoking no alcohol. Works midnight at the factory Physical examination: VITAL SIGNS: 98.5, 67, 17, 93 x 62, 98% room air GENERAL: Reclining in bed. Not in distress EYES: Pupils equal. Conjunctiva brooke l. HEENT: External appearance of nose and ears normal, oral cavity grossly normal. NECK: JVD not raised; masses not palpable. HEART: First and second heart sounds are normal; no edema. LUNGS: Respiratory rate normal; clear to auscultation. ABDOMEN: Soft, decreased tenderness, no guarding rigidity, liver spleen not palpable, no masses palpable. PSYCH: Alert and oriented x3; mood and affect brooke l. MUSCULOSKELETAL:No Clubbing/cyanosis;muscles-grossly intact INVESTIGATIONS, reviewed in the clinical context: January 31: White count 12.9 hemoglobin 13 platelets 181 potassium 3.8 creatinine 0.64 total bilirubin 3.3 AST 362 ALT 356 January 30: White count 9.5 hemoglobin 13.5 platelets 199 sodium 136 potassium 3.9 creatinine 0.53 Total bilirubin 2.3 AST [address] abdomen pelvis: Hyperemia of the extrahepatic biliary wall and prominence of the gallbladder wall with hyperemia. Nonobstructing left renal calculus. Colonic diverticulosis -Assessment plan: -Acute abdominal pain with nausea chills. hepatitic picture. Possible acute cholecystitis. No stone reported.: Slow to respond Seen by Dr. Juan Soriano and Dr Reilly. MRCP ordered IV Unasyn. N.p.o. IV fluids -Primary osteoarthritis Pain control -Essential hypertension Primidone -GERD Protonix -Sigmoid diverticulosis asymptomatic -Left kidney stone, asymptomatic Remains NPO. IV fluids. IV Unasyn. MRCP ordered. Discussed with patient. 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
[2024-02-02 08:05] LABS: Basophils % (A) 0 %; Eosinophils # (A) 0.1 k/uL (0-0.7); Eosinophils % (A) 1 %; HCT 41.5 % (34.0-46.0); HGB 13.2 gm/dL (11.4-16.0); Hypochromasia Slight; Lymphocytes # (A) 0.6 k/uL (1.0-4.8); Lymphocytes % (A) 8 %; MCH 32.1 pg (25.0-35.0); MCHC 31.9 g/dL (31.0-37.0); MCV 100.7 fL (80.0-100.0); Mean Platelet Volume 7.3; Monocytes # (A) 0.5 k/uL (0-1.0); Monocytes % (A) 5 %; Neutrophils % (A) 84 %; Platelet Count 172 k/uL (150-450); RBC 4.12 m/uL (3.80-5.40); RDW 12.3 % (11.5-15.5); WBC 8.3 k/uL (3.8-10.6)
[2024-02-02 08:22] LABS: ALT 267 U/L (4-34); AST 158 U/L (14-36); African American GFR (CKD) >90 (>60 ml/min/1.73 sqM); Albumin 3.3 g/dL (3.5-5.0); Alkaline Phosphatase 151 U/L (38-126); Anion Gap 6 mmol/L; Blood Urea Nitrogen 13 mg/dL (7-17); Calcium 8.7 mg/dL (8.4-10.2); Carbon Dioxide 27 mmol/L (22-30); Chloride 108 mmol/L (98-107); Glucose 85 mg/dL (74-99); Non-African American GFR(CKD) >90 (>60 ml/min/1.73 sqM); Potassium 3.4 mmol/L (3.5-5.1); Sodium 141 mmol/L (137-145); Total Bilirubin 1.8 mg/dL (0.2-1.3); Total Protein 6.1 g/dL (6.3-8.2)
[2024-02-02] MEDS: IV FLUID CONTINUATION 1,000 ML IV ONE (10:26)
[2024-02-02] MEDS: ONDANSETRON 4 MG/2 ML VIAL IVP PRN (10:31)
[2024-02-02] MEDS: HEPARIN SODIUM,PORCINE 5,000 UNIT/ML 1 ML VIAL SQ STA (10:57)
[2024-02-02] MEDS ORDERED: ceFAZolin 1 GM/50 ML BAG (PMX) ONE (11:10)
[2024-02-02] MEDS ORDERED: LIDOCAINE 1% INJ 10MG/ML (20 ML MDV) ONE (11:10)
[2024-02-02] MEDS ORDERED: fentaNYL (PF) 50 MCG/ML 2 ML AMP ONE (11:10)
[2024-02-02] MEDS ORDERED: GLYCOPYRROLATE 0.2 MG/ML 2 ML VIAL ONE (11:10)
[2024-02-02] MEDS ORDERED: ROCURONIUM 10 MG/ML (5 ML VIAL) IV ONE (11:10)
[2024-02-02] MEDS ORDERED: SUCCINYLCHOLINE CHLORIDE 200 MG/10 ML VIAL IV ONE (11:10)
[2024-02-02] MEDS ORDERED: KETOROLAC 15 MG/ML 1 ML VIAL ONE (11:10)
[2024-02-02] MEDS ORDERED: NEOSTIGMINE 1 MG/ML 10 ML VIAL ONE (11:10)
[2024-02-02] MEDS ORDERED: MIDAZOLAM 2 MG/2 ML VIAL ONE (11:10)
[2024-02-02] MEDS ORDERED: PROPOFOL 10 MG/ML 20 ML VIAL IV ONE (11:10)
[2024-02-02] MEDS: SODIUM CHLORIDE 0.9% 100 ML with ceFAZolin 3,000 MG IV ONE (11:31)
[2024-02-02] MEDS: LIDOCAINE 1%-EPI 1:100,000 20 ML VIAL SQ ONE (11:31)
[2024-02-02] MEDS ORDERED: HYDROmorphone 1 MG/ML 1 ML SYRINGE IVP PRN (11:54)
[2024-02-02] MEDS ORDERED: ONDANSETRON 4 MG/2 ML VIAL IVP PRN (11:54)
--- NOTE | 2024-02-02 11:54 | P.OP ---
Date of Procedure: 02/02/24 Preoperative Diagnosis: Cholecystitis Postoperative Diagnosis: Cholecystitis Procedure(s) Performed: Laparoscopic cholecystectomy Anesthesia: JOE Surgeon: Kyle Reilly Estimated Blood Loss (ml): 5 Pathology: other (Gallbladder) Condition: stable Disposition: PACU Description of Procedure: The patient was placed on the operating table. The patient received a general endotracheal tube anesthesia. The patients abdomen was prepped and draped in the usual sterile fashion. Through an infraumbilical stab incision, the fascia of the anterior abdominal wall was grasped with a pair of Kochers and then the Veress needle was placed in the peritoneal cavity. Position of the Veress needle was confirmed with positive drop test. The abdomen was then insufflated. After adequate insufflation, the 10 mm trocar was placed in the peritoneal cavity. Following this the laparoscope was placed in the peritoneal cavity. The patient was placed in the head-up, right side up position and then a 5 mm trocar was placed in the right lateral and right subcostal position under direct visualization. A 8 mm trocar was placed in the epigastric position. The gallbladder was grasped in the fundus and infundibulum. Traction on the gallbladder was placed in the lateral and the cephalad positions. The triangle of Calot was visualized.. The cystic duct was bluntly dissected until the union of the cystic duct and common bile duct was seen. A critical view of safety was achieved. The cystic duct was then divided and sealed with the Harmonic scissors. A PDS Endoloop was then placed throughout the cystic duct stump. The cystic artery divided and sealed with the Harmonic scissors. The gallbladder was then removed from the liver bed using Harmonic scissors. The gallbladder was then extracted through the epigastric port site. Operative field was checked for any bleeding spots and Harmonic scissors was used to coagulate the liver bed. The abdomen was irrigated. The trocars were removed. The skin was closed using interrupted 3-0 Vicryl suture. Dermabond dressing were applied. The patient tolerated the procedure well.
[2024-02-02] MEDS: HYDROmorphone 0.5 MG/0.5 ML SYRINGE IVP STA (12:19)
--- NOTE | 2024-02-02 15:21 | P.PN ---
Subjective Progress Note Date: 02/02/24 Principal diagnosis: Cholecystitis This is a pleasant 63-year-old female with a past medical history of diabetes melitis and GERD scented to the emergency department yesterday afternoon with complaints of onset of abdominal pain that started Tuesday night and was associated with nausea it came and went away and then came back yesterday with pain to her lower back, head and neck. She also states that she had chills and sweats. Her workup in the emergency department showed elevated LFTs and bilirubin she had a CT of the abdomen pelvis and abdominal ultrasound. CT abdomen shows cholecystitis questionable ascending cholangitis and ultrasound again showed cholecystitis no gallbladder stones minimally dilated CBD 0.8 cm. Gastroenterology was consulted for cholecystitis. Patient's been afebrile since here in the hospital. No leukocytosis on admission however today mild leukocytosis with WBC of 12.9. Total bilirubin on admission was 2.3 today 3.3 AST ALT and alkaline phosphatase all trending down. No elevation of amylase or lipase. Patient was started on IV Unasyn. She currently denies any abdominal pain, no nausea or vomiting. States that most of her discomfort is in her neck or lower back and headache. 02/02/2024 Patient seen and examined this morning as a follow-up. She is scheduled for laparoscopic cholecystectomy today at 10 AM, general surgery canceled MRCP. Total bilirubin and LFTs are trending down. Total bilirubin 1.8 down from 3.3 AST 158 down from 362 ALT 267 down from 356 alkaline phosphatase 151 down from 152. She continues to states she has no abdominal pain, she does have continued body aches in her back neck and head. No nausea or vomiting. She is been afebrile. Objective - Vital Signs Vital signs: Vital Signs Temp 98.2 F 02/02/24 07:00 Pulse 71 02/02/24 07:00 Resp 17 02/02/24 07:00 BP 110/59 02/02/24 07:00 Pulse Ox 96 02/02/24 07:00 FiO2 Intake & Output 02/01/24 02/02/24 02/02/24 18:59 06:59 18:59 Intake Total 1385 Balance 1385 Intake: Intake, IV Titration 1385 Amount Lactated Ringers 1,000 ml 1125 @ 125 mls/hr IV .Q8H [facility] Rx#:[id number] Sodium Chloride 0.9% 1, 260 000 ml @ 130 mls/hr IV . Q7H42M [facility] Rx#:[id number] Other: Voiding Method Toilet # Voids 2 3 # Bowel Movements 0 - Exam General appearance: The patient is alert, oriented, appears in no acute distress. HET: Head is normocephalic and atraumatic. Conjunctiva pink. Sclera anicteric. Neck: Supple without lymphadenopathy. Abdomen: Soft, nontender, nondistended with bowel sounds. No guarding or rigidity. Extremities: Normal skin color and turgor. No pedal edema Skin: No rashes, no jaundice Neurological: No focal deficits. Alert and oriented. - Labs CBC & Chem 7: 02/02/24 07:46 02/02/24 07:46 Labs: Abnormal Lab Results - Last 24 Hours (Table) 02/02/24 02/02/24 Range/Units 07:46 07:46 MCV 100.7 H (80.0-100.0) fL Lymphocytes # 0.6 L (1.0-4.8) k/uL Potassium 3.4 L (3.5-5.1) mmol/L Chloride 108 H (98-107) mmol/L Total Bilirubin 1.8 H (0.2-1.3) mg/dL AST 158 H (14-36) U/L ALT 267 H (4-34) U/L Alkaline Phosphatase 151 H (38-126) U/L Total Protein 6.1 L (6.3-8.2) g/dL Albumin 3.3 L (3.5-5.0) g/dL Microbiology - Last 24 Hours (Table) 01/31/24 17:44 Blood Culture - Preliminary Blood Assessment and Plan (1) Elevated LFTs Narrative/Plan: 63-year-old female presenting with abdominal pain now improved with multiple symptoms of pain and body aches and back head and neck had elevated LFTs and CT exam with findings of Radha cystitis. Patient denies any history of liver disease. Labs with cholestatic pattern, however CT abdomen pelvis with no evidence of gallstones as well as gallbladder ultrasound. LFTs are trending down. Patient is status post cholecystectomy with noted Gallstones. Will reevaluate in the morning and trend LFTs, if they continue to trend down patient can be discharged otherwise we will consider ERCP Current Visit: Yes Status: Acute Code(s): R79.89 - OTHER SPECIFIED ABNORMAL FINDINGS OF BLOOD CHEMISTRY SNOMED Code(s): 962160443 (2) Cholecystitis Current Visit: Yes Status: Acute Code(s): K81.9 - CHOLECYSTITIS, UNSPECIFIED SNOMED Code(s): 65465346 Plan: 1. Continue symptomatic and supportive care 2. Diet per recommendations from general surgery 3. Repeat CMP tomorrow 4. Protonix 40 mg daily GI prophylaxis 5. Patient status post cholecystectomy 6. Further recommendations forthcoming pending clinical course Thank you for this consultation, we will continue to follow. Dr. Juan Soriano I agree with the dictator's note, documented as a scribe by Abril Saucedo.
[2024-02-02] MEDS: LACTATED RINGERS 1,000 ML IV SCH (16:50)
[2024-02-02] MEDS: HYDROcodone/APAP 5-325MG 1 EACH TAB PO PRN (20:21)
--- NOTE | 2024-02-02 21:03 | P.PN ---
Progress Note - Text Progress Note Date: 02/02/24 Chief Complaint: Abdominal pain This is a pleasant 63-year-old patient follows Dr. Marc. 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 Having some nausea. When she came in the morning she started having more pain across the belly. No central. Having chills. Normally had has about 3 bowel movements a week. Last bowel movement was yesterday. January 31: Patient was admitted with abdominal pain. [place] to have acute cholecystitis/ascending cholangitis. Some improvement in abdominal pain today. Slight improvement in LFTs. No fever. MRCP ordered by GI. Slight improvement abdominal pain. February 01: Dr Reilly to the patient for cholecystectomy this morning. MRCP was canceled. Postprocedure some pain at the operative site. No nausea vomiting. Has been placed on regular diet. Repeat labs in the morning. Active Medications Hydrocodone Bitart/Acetaminophen (Hydrocodone/Apap 5-325mg 1 Each Tab) 1 each PO Q4HR PRN PRN Reason: Pain Last Admin: 02/02/24 20:21 Dose: 1 each Enoxaparin Sodium (Enoxaparin 40 Mg/0.4 Ml Syringe) 40 mg SQ DAILY [facility] Hydromorphone HCl (Hydromorphone 1 Mg/Ml 1 Ml Syringe) 1 mg IVP Q3HR PRN PRN Reason: Pain Ampicillin Sodium/Sulbactam (Sodium 3 gm/ Sodium Chloride) 100 mls @ 200 mls/hr IVPB Q8HR [facility]; Protocol Last Admin: 02/02/24 16:55 Dose: 200 mls/hr Sodium Chloride (Saline 0.9%) 1,000 mls @ 130 mls/hr IV .Q7H42M [facility] Last Admin: 02/02/24 20:22 Dose: 130 mls/hr Lactated Ringer's (Lactated Ringers) 1,000 mls @ 125 mls/hr IV .Q8H [facility] Last Admin: 02/02/24 20:22 Dose: Not Given Lactated Ringer's (Lactated Ringers) 1,000 mls @ 20 mls/hr IV .Q24H [facility] Last Admin: 02/02/24 16:50 Dose: Not Given Morphine Sulfate (Morphine Sulfate 4 Mg/Ml Syringe) 4 mg IV Q4HR PRN PRN Reason: Severe Pain (Scale 7 to 10) Last Admin: 02/02/24 16:37 Dose: 4 mg Naloxone HCl (Naloxone 0.4 Mg/Ml 1 Ml Vial) 0.2 mg IV Q2M PRN PRN Reason: Opioid Reversal Ondansetron HCl (Ondansetron 4 Mg/2 Ml Vial) 4 mg IVP Q8HR PRN PRN Reason: Nausea And Vomiting Last Admin: 02/02/24 10:31 Dose: 4 mg Ondansetron HCl (Ondansetron 4 Mg/2 Ml Vial) 4 mg IVP Q6HR PRN PRN Reason: Nausea And Vomiting Pantoprazole Sodium (Pantoprazole 40 Mg/10 Ml Vial) 40 mg IV DAILY [facility] Last Admin: 02/02/24 08:19 Dose: 40 mg Social history: . No smoking no alcohol. Works midnight at the factory Physical examination: VITAL SIGNS: 97.7, 64, 16, 1 one 3 x 57, 95% room air GENERAL: Reclining in bed. Tired EYES: Pupils equal. Conjunctiva brooke l. HEENT: External appearance of nose and ears normal, oral cavity grossly normal. NECK: JVD not raised; masses not palpable. HEART: First and second heart sounds are normal; no edema. LUNGS: Respiratory rate normal; clear to auscultation. ABDOMEN: Soft, abdominal tenderness s, no guarding rigidity, liver spleen not palpable, no masses palpable. PSYCH: Alert and oriented x3; mood and affect brooke l. MUSCULOSKELETAL:No Clubbing/cyanosis;muscles-grossly intact INVESTIGATIONS, reviewed in the clinical context: February 01: White count 8.3 hemoglobin 13.2 potassium 3.4 creatinine 0.67 bilirubin 1.8 AST 158 ALT 267 January 31: White count 12.9 hemoglobin 13 platelets 181 potassium 3.8 creatinine 0.64 total bilirubin 3.3 AST 362 ALT 356 January 30: White count 9.5 hemoglobin 13.5 platelets 199 sodium 136 potassium 3.9 creatinine 0.53 Total bilirubin 2.3 AST [address] abdomen pelvis: Hyperemia of the extrahepatic biliary wall and prominence of the gallbladder wall with hyperemia. Nonobstructing left renal calculus. Colonic diverticulosis -Assessment plan: -Acute abdominal pain with nausea chills. hepatitic picture. Possible acute cholecystitis. No stone reported.: Followed by y Dr. Juan Soriano and Dr Reilly. MRCP canceled Cholecystectomy today on February [address] Reilly IV Unasyn. . Started on diet -Primary osteoarthritis Pain control -Essential hypertension Primidone -GERD Protonix -Sigmoid diverticulosis asymptomatic -Left kidney stone, asymptomatic On regular diet. IV Unasyn. Repeat labs tomorrow. 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
[2024-02-02] MEDS: SODIUM CHLORIDE 0.9% 1,000 ML IV SCH (21:25)
[2024-02-02] MEDS ORDERED: ACETAMINOPHEN TAB 500 MG TAB PO PRN (21:26)
[2024-02-03 06:59] LABS: ALT 170 U/L (4-34); AST 81 U/L (14-36); African American GFR (CKD) >90 (>60 ml/min/1.73 sqM); Albumin 2.8 g/dL (3.5-5.0); Alkaline Phosphatase 127 U/L (38-126); Anion Gap 2 mmol/L; Blood Urea Nitrogen 8 mg/dL (7-17); Calcium 8.2 mg/dL (8.4-10.2); Carbon Dioxide 29 mmol/L (22-30); Chloride 107 mmol/L (98-107); Glucose 137 mg/dL (74-99); Non-African American GFR(CKD) >90 (>60 ml/min/1.73 sqM); Potassium 3.5 mmol/L (3.5-5.1); Sodium 138 mmol/L (137-145); Total Bilirubin 1.4 mg/dL (0.2-1.3); Total Protein 5.5 g/dL (6.3-8.2)
[2024-02-03 07:12] LABS: Prothrombin Time 10.9 sec (10.0-12.5)
[2024-02-03] MEDS: ENOXAPARIN 40 MG/0.4 ML SYRINGE SQ SCH (07:58)
--- NOTE | 2024-02-03 12:32 | P.PN ---
Subjective Progress Note Date: 02/03/24 Principal diagnosis: Cholecystitis This is a pleasant 63-year-old female with a past medical history of diabetes melitis and GERD scented to the emergency department yesterday afternoon with complaints of onset of abdominal pain that started Tuesday night and was associated with nausea it came and went away and then came back yesterday with pain to her lower back, head and neck. She also states that she had chills and sweats. Her workup in the emergency department showed elevated LFTs and bilirubin she had a CT of the abdomen pelvis and abdominal ultrasound. CT abdomen shows cholecystitis questionable ascending cholangitis and ultrasound again showed cholecystitis no gallbladder stones minimally dilated CBD 0.8 cm. Gastroenterology was consulted for cholecystitis. Patient's been afebrile since here in the hospital. No leukocytosis on admission however today mild leukocytosis with WBC of 12.9. Total bilirubin on admission was 2.3 today 3.3 AST ALT and alkaline phosphatase all trending down. No elevation of amylase or lipase. Patient was started on IV Unasyn. She currently denies any abdominal pain, no nausea or vomiting. States that most of her discomfort is in her neck or lower back and headache. 02/02/2024 Patient seen and examined this morning as a follow-up. She is scheduled for laparoscopic cholecystectomy today at 10 AM, general surgery canceled MRCP. Total bilirubin and LFTs are trending down. Total bilirubin 1.8 down from 3.3 AST 158 down from 362 ALT 267 down from 356 alkaline phosphatase 151 down from 152. She continues to states she has no abdominal pain, she does have continued body aches in her back neck and head. No nausea or vomiting. She is been afebrile. 02/03/2024 Patient seen and examined today as a follow-up. States she has some surgical pain however otherwise little low abdominal discomfort. No nausea or vomiting. Patient did spike a temp yesterday evening around 8 PM of 101.2. She has been afebrile since. Repeat labs show LFTs continue to trend down. Total bilirubin 1.4 AST 81 ALT 170 alkaline phosphatase 127. Objective - Vital Signs Vital signs: Vital Signs Temp 98 F 02/03/24 01:33 Pulse 76 02/03/24 01:33 Resp 16 02/03/24 01:33 BP 112/66 08/02/24 01:33 Pulse Ox 97 02/03/24 01:33 FiO2 Intake & Output 02/02/24 02/02/24 02/03/24 06:59 18:59 06:59 Intake Total 1385 800 Output Total 5 Balance 1385 795 Intake: IV 800 Intake, IV Titration 1385 Amount Lactated Ringers 1,000 ml 1125 @ 125 mls/hr IV .Q8H [facility] Rx#:[id number] Sodium Chloride 0.9% 1, 260 000 ml @ 130 mls/hr IV . Q7H42M [facility] Rx#:[id number] Output: Estimated Blood Loss 5 Other: Voiding Method Toilet # Voids 3 1 2 # Bowel Movements 0 - Exam General appearance: The patient is alert, oriented, appears in no acute distress. HET: Head is normocephalic and atraumatic. Conjunctiva pink. Sclera anicteric. Neck: Supple without lymphadenopathy. Abdomen: Soft, surgical incisions well-approximated, some mild tenderness surrounding incisions. Extremities: Normal skin color and turgor. No pedal edema Skin: No rashes, no jaundice Neurological: No focal deficits. Alert and oriented. - Labs CBC & Chem 7: 02/02/24 07:46 02/03/24 06:21 Labs: Abnormal Lab Results - Last 24 Hours (Table) 02/02/24 02/02/24 Range/Units 07:46 07:46 MCV 100.7 H (80.0-100.0) fL Lymphocytes # 0.6 L (1.0-4.8) k/uL Potassium 3.4 L (3.5-5.1) mmol/L Chloride 108 H (98-107) mmol/L Total Bilirubin 1.8 H (0.2-1.3) mg/dL AST 158 H (14-36) U/L ALT 267 H (4-34) U/L Alkaline Phosphatase 151 H (38-126) U/L Total Protein 6.1 L (6.3-8.2) g/dL Albumin 3.3 L (3.5-5.0) g/dL Microbiology - Last 24 Hours (Table) 01/31/24 17:44 Blood Culture - Preliminary Blood Assessment and Plan (1) Elevated LFTs Narrative/Plan: 63-year-old female presenting with abdominal pain now improved with multiple s ymptoms of pain and body aches and back head and neck had elevated LFTs and CT exam with findings of Radha cystitis. Patient denies any history of liver disease. Labs with cholestatic pattern, however CT abdomen pelvis with no evidence of gallstones as well as gallbladder ultrasound. LFTs are trending down. Patient is status post cholecystectomy with noted gallstones. LFTs continue to trend down. There is no indication for any ERCP at this time. Current Visit: Yes Status: Acute Code(s): R79.89 - OTHER SPECIFIED ABNORMAL FINDINGS OF BLOOD CHEMISTRY SNOMED Code(s): 256001763 (2) Cholecystitis Current Visit: Yes Status: Acute Code(s): K81.9 - CHOLECYSTITIS, UNSPECIFIED SNOMED Code(s): 25983316 Plan: 1. Continue symptomatic and supportive care 2. Diet per recommendations from general surgery 3. Protonix 40 mg daily GI prophylaxis 4. Patient status post cholecystectomy 5. Encourage ambulation 6. LFTs continue to trend down, no plans for endoscopic evaluation with ERCP. Thank you for this consultation, patient is cleared from gastroenterology for discharge. We will sign off at this time. Dr. Juan Soriano I agree with the dictator's note, documented as a scribe by Abril Saucedo.
--- NOTE | 2024-02-03 16:16 | P.PN ---
Subjective Progress Note Date: 02/03/24 Principal diagnosis: Cholecystitis Patient doing better today. Pain 5 out of 10. Some discomfort right shoulder region at times. Patient had a fever last night 101.2. Today's liver enzymes improved. Tolerating regular diet although appetite diminished. Objective - Vital Signs Vital signs: Vital Signs Temp 97.8 F 02/03/24 14:00 Pulse 75 02/03/24 14:00 Resp 17 02/03/24 14:00 BP 120/79 02/03/24 14:00 Pulse Ox 93 L 02/03/24 14:00 FiO2 Intake & Output 02/02/24 02/03/24 02/03/24 18:59 06:59 18:59 Intake Total 800 Output Total 5 Balance 795 Intake: IV 800 Output: Estimated Blood Loss 5 Other: # Voids 1 2 # Bowel Movements 0 - Exam Abdomen: Soft, nondistended, incisions clean and dry, mild tenderness right upper quadrant - Labs CBC & Chem 7: 02/02/24 07:46 02/03/24 06:21 Labs: Abnormal Lab Results - Last 24 Hours (Table) 02/03/24 Range/Units 06:21 Glucose 137 H (74-99) mg/dL Calcium 8.2 L (8.4-10.2) mg/dL Total Bilirubin 1.4 H (0.2-1.3) mg/dL AST 81 H (14-36) U/L ALT 170 H (4-34) U/L Alkaline Phosphatase 127 H (38-126) U/L Total Protein 5.5 L (6.3-8.2) g/dL Albumin 2.8 L (3.5-5.0) g/dL Microbiology - Last 24 Hours (Table) 01/31/24 17:44 Blood Culture - Preliminary Blood Assessment and Plan (1) Cholecystitis Narrative/Plan: 63-year-old female with recent laparoscopic cholecystectomy for cholecystitis and possible choledocholithiasis. Patient had an elevated fevers last night. Labs however improved. Pain still 5 out of 10. Will recheck CBC and CMP tomorrow. Continue diet. Possible discharge in a.m. if doing well. Current Visit: Yes Status: Acute Code(s): K81.9 - CHOLECYSTITIS, UNSPECIFIED SNOMED Code(s): 77753224
[2024-02-03 21:01] VITALS: TEMP 98.1
[2024-02-04 07:34] VITALS: BP 106/72; PULSE 64; RESP 17
[2024-02-04 07:48] LABS: ALT 135 U/L (4-34); AST 56 U/L (14-36); African American GFR (CKD) >90 (>60 ml/min/1.73 sqM); Albumin 2.9 g/dL (3.5-5.0); Alkaline Phosphatase 121 U/L (38-126); Anion Gap 1 mmol/L; Blood Urea Nitrogen 8 mg/dL (7-17); Calcium 8.2 mg/dL (8.4-10.2); Carbon Dioxide 33 mmol/L (22-30); Chloride 105 mmol/L (98-107); Glucose 104 mg/dL (74-99); Non-African American GFR(CKD) >90 (>60 ml/min/1.73 sqM); Potassium 3.1 mmol/L (3.5-5.1); Sodium 139 mmol/L (137-145); Total Bilirubin 1.1 mg/dL (0.2-1.3); Total Protein 5.7 g/dL (6.3-8.2)
[2024-02-04 07:56] LABS: Basophils % (A) 1 %; Eosinophils # (A) 0.1 k/uL (0-0.7); Eosinophils % (A) 2 %; HCT 36.4 % (34.0-46.0); HGB 11.7 gm/dL (11.4-16.0); Hypochromasia Slight; Lymphocytes # (A) 1.1 k/uL (1.0-4.8); Lymphocytes % (A) 20 %; MCH 32.8 pg (25.0-35.0); MCHC 32.3 g/dL (31.0-37.0); MCV 101.5 fL (80.0-100.0); Mean Platelet Volume 7.5; Monocytes # (A) 0.3 k/uL (0-1.0); Monocytes % (A) 6 %; Neutrophils # (A) 3.7 k/uL (1.3-7.7); Neutrophils % (A) 70 %; Platelet Count 187 k/uL (150-450); RBC 3.58 m/uL (3.80-5.40); RDW 12.2 % (11.5-15.5); WBC 5.3 k/uL (3.8-10.6)
--- NOTE | 2024-02-04 10:02 | P.PN ---
Subjective Progress Note Date: 02/03/24 63-year-old patient follows Dr. Marc. 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 Having some nausea. When she came in the morning she started having more pain across the belly. No central. Having chills. Normally had has about 3 bowel movements a week. Last bowel movement was yesterday. January 31: Patient was admitted with abdominal pain. [place] to have acute cholecystitis/ascending cholangitis. Some improvement in abdominal pain today. Slight improvement in LFTs. No fever. MRCP ordered by GI. Slight improvement abdominal pain. February 01: Dr Reilly to the patient for cholecystectomy this morning. MRCP was canceled. Postprocedure some pain at the operative site. No nausea vomiting. Has been placed on regular diet. Repeat labs in the morning. Patient is seen and evaluated in room at bedside; has been placed on a regular diet and is able to tolerate well; reports fair pain control; no episodes of nausea or vomiting -- Patient has been evaluated by general surgery and recommending continued monitoring given episode of high temperature -Labs are reviewed and white blood count remains stable; liver enzymes continue to trend down -Patient has been cleared for discharge by GI Objective - Vital Signs Vital signs: Vital Signs Temp 97.8 F 02/03/24 07:54 Pulse 80 02/03/24 07:54 Resp 16 02/03/24 07:54 BP 111/60 02/03/24 07:54 Pulse Ox 96 02/03/24 07:54 FiO2 Intake & Output 02/02/24 02/03/24 02/03/24 18:59 06:59 18:59 Intake Total 800 Output Total 5 Balance 795 Intake: IV 800 Output: Estimated Blood Loss 5 Other: # Voids 1 2 # Bowel Movements 0 - Exam GENERAL: Reclining in bed. Tired EYES: Pupils equal. Conjunctiva brooke l. HEENT: External appearance of nose and ears normal, oral cavity grossly normal. NECK: JVD not raised; masses not palpable. HEART: First and second heart sounds are normal; no edema. LUNGS: Respiratory rate normal; clear to auscultation. ABDOMEN: Soft, abdominal tenderness s, no guarding rigidity, liver spleen not palpable, no masses palpable. PSYCH: Alert and oriented x3; mood and affect brooke l. MUSCULOSKELETAL:No Clubbing/cyanosis;muscles-grossly intact - Labs CBC & Chem 7: 02/04/24 06:49 02/04/24 06:49 Labs: Abnormal Lab Results - Last 24 Hours (Table) 02/03/24 Range/Units 06:21 Glucose 137 H (74-99) mg/dL Calcium 8.2 L (8.4-10.2) mg/dL Total Bilirubin 1.4 H (0.2-1.3) mg/dL AST 81 H (14-36) U/L ALT 170 H (4-34) U/L Alkaline Phosphatase 127 H (38-126) U/L Total Protein 5.5 L (6.3-8.2) g/dL Albumin 2.8 L (3.5-5.0) g/dL Microbiology - Last 24 Hours (Table) 01/31/24 17:44 Blood Culture - Preliminary Blood Assessment and Plan Assessment: -Acute abdominal pain with nausea chills. hepatitic picture. Possible acute cholecystitis. No stone reported.: Followed by y Dr. Juan Soriano and Dr Reilly. MRCP canceled Cholecystectomy today on February [address] Reilly IV Unasyn. . Started on diet -Primary osteoarthritis Pain control -Essential hypertension Primidone -GERD Protonix -Sigmoid diverticulosis asymptomatic -Left kidney stone, asymptomatic On regular diet. IV Unasyn. Repeat labs tomorrow.
[2024-02-04] MEDS: POTASSIUM CHLORIDE ER 10 MEQ TAB.ER.PRT PO STA (10:40)
--- NOTE | 2024-02-04 21:39 | P.DS ---
Providers Date of admission: 01/31/24 23:43 Expected date of discharge: 02/04/24 Attending physician: Roni Lynch Consults: 01/31/24 16:47 Consult Physician Urgent Consulting Provider: Kyle Reilly Consult Reason/Comments: Cholecystitis Do you want consulting provider notified?: Yes Consult Physician Urgent Consulting Provider: Anamika Soriano Consult Reason/Comments: Cholecystitis Do you want consulting provider notified?: Yes Primary care physician: Clark Marc [facility] Course: Patient underwent cholecsytectomy and was found to be febrile, current vitals are stable and patient has no white count. Patient will be discharge homne in stable condition. Patient Condition at Discharge: Stable Plan - Discharge Summary Discharge Rx Participant: Yes New Discharge Prescriptions: New HYDROcodone/APAP 5-325MG [[place] 5-325] 1 tab PO Q6HR PRN 3 Days #12 tab PRN Reason: Pain HYDROcodone/APAP 5-325MG [[place] 5-325] 1 tab PO Q6HR PRN 3 Days #12 tab PRN Reason: Pain No Action Primidone [Mysoline] 25 mg PO DAILY Pantoprazole [Protonix] 40 mg PO DAILY Cholecalciferol [Vitamin D3 (125 Mcg = 5000 Iu)] 125 mcg PO DAILY Celecoxib [CeleBREX] 200 mg PO BID PRN PRN Reason: Arthritis pain Discharge Medication List Cholecalciferol [Vitamin D3 (125 Mcg = 5000 Iu)] 125 mcg PO DAILY 06/01/23 [History] Pantoprazole [Protonix] 40 mg PO DAILY 06/01/23 [History] Primidone [Mysoline] 25 mg PO DAILY 06/01/23 [History] Celecoxib [CeleBREX] 200 mg PO BID PRN 01/31/24 [History] HYDROcodone/APAP 5-325MG [[place] 5-325] 1 tab PO Q6HR PRN 3 Days #12 tab 02/02/24 [Rx] HYDROcodone/APAP 5-325MG [[place] 5-325] 1 tab PO Q6HR PRN 3 Days #12 tab 02/04/24 [Rx] Follow up Appointment(s)/Referral(s): Clark Marc DO [Primary Care Provider] - 1-2 days Kyle Reilly MD [STAFF PHYSICIAN] - 1 Week Patient Instructions/Handouts: Laparoscopic Cholecystectomy (GEN) Activity/Diet/Wound Care/Special Instructions: low fat diet Discharge Disposition: HOME SELF-CARE
--- NOTE | 2024-04-03 13:15 | CDI ---
Documentation Clarification Form Date: 04/03/2024 01:06:35 PM From: Cira Sharp Phone: Admit Date: 01/31/2024 11:43:00 PM Patient Name: Beti Mattson Visit Number: [id number] Discharge Date: 02/04/2024 12:08:00 PM ATTENTION: The Clinical Documentation Specialists (CDI) and [facility] Coding Staff appreciate your assistance in clarifying documentation. Please respond to the clarification below the line at the bottom and electronically sign. The CDI & [facility] Coding staff will review the response and follow-up if needed. Please note: Queries are made part of the Legal Health Record. If you have any questions, please contact the author of this message via ITS. Doctor/Provider: Kyle Reilly The final diagnosis of the pathology report states Acalculusacute and chronic cholecystitis. Coding guidelines do not allow coding professionals to code based on pathology results; therefore, clarification is requested. History/risk factors: 63yo F, cholecystitis, primary OA, HTN, GERD, Sigmoid diverticulosisasymptomatic, Left kidney stone, asymptomatic Clinical Indicators: 01/30 T 98.3 WBC 9.5 01/31 T98.5 WBC 12.9 02/01 T 97.7 WBC 12.9 Treatment: Lapcholecystectomy. Patient had anelevatedfeverslast night. Labs however improved. Painstill 5 out of 10.Will recheck CBC and CMP tomorrow. Continue diet. Please clarify if you agree with the pathology report diagnosis of Acalculusacute and chronic cholecystitis. [ ] Yes [ ] No [ ] Other (please specify) [ xx] Unable to determine (Template Last Revised: September 2020) MTDD
== END 2024-02-04 12:08 | disposition home or self-care (01) | DRG 419 ==
LOC: EC 13:13 → 1SOBS 16:50 → OBSVTOIN 23:43
PROVIDERS: ADMIT Hospitalist; ATTEND Hospitalist
PROC: 0FT44ZZ Resection of Gallbladder, Percutaneous Endoscopic Approach (ICD-10-PCS; principal; 2024-02-02 10:45)
DX: K80.12 Calculus of gallbladder with acute and chronic cholecystitis without obstruction (principal); E11.9 Type 2 diabetes mellitus without complications; I10 Essential (primary) hypertension; K21.9 Gastro-esophageal reflux disease without esophagitis; M19.91 Primary osteoarthritis, unspecified site; G25.0 Essential tremor; K57.30 Diverticulosis of large intestine without perforation or abscess without bleeding; N20.0 Calculus of kidney; Z79.1 Long term (current) use of non-steroidal anti-inflammatories (NSAID); Z79.84 Long term (current) use of oral hypoglycemic drugs; Z79.899 Other long term (current) drug therapy
CPT/HCPCS: 36415; 74177; 76705; 80053; 82150; 83605; 83690; 85025; 85610; 87040; 88304; 96361; 96374; 96375; 99285

== ENCOUNTER → 2024-10-26 | Outpatient (CLI) | payer OTHER ==
--- NOTE | 2024-10-26 17:36 | XR ---
EXAMINATION TYPE: XR Hip Bilateral Complete DATE OF EXAM: 10/26/2024 5:31 PM COMPARISON: None. CLINICAL INDICATION: Female, 64 years old with history of R29.898, TECHNIQUE: AP and frogleg views of the bilateral hip are obtained. FINDINGS: There is no acute fracture/dislocation evident in the bilateral hip. The joint space in t he bilateral hip appears within normal limits. The overlying soft tissue appears unremarkable. IMPRESSION: There is no acute fracture or dislocation in the bilateral hip. [facility], , 10/26/2024 5:34 PM
--- NOTE | 2024-10-26 17:37 | XR ---
EXAMINATION TYPE: XR knee 4V bilateral DATE OF EXAM: 10/26/2024 5:31 PM COMPARISON: None. CLINICAL INDICATION: Female, 64 years old with history of R29.898 OTH SYMPTOMS AND SIGNS INVOLVING TH E MUSCU, pain TECHNIQUE: XR knee 4V bilateral XX views were obtained. FINDINGS: There is no acute fracture/dislocation. The tri-compartment joint spaces appear mildly narrowed. The overlying soft tissue appears unremarkable. IMPRESSION: No acute fracture or dislocation [facility], , 10/26/2024 5:35 PM
--- NOTE | 2024-10-26 17:39 | XR ---
EXAMINATION TYPE: XR lumbar spine 2 or 3V DATE OF EXAM: 10/26/2024 5:31 PM COMPARISON: None. CLINICAL INDICATION: Female, 64 years old with history of R29.898 OTH SYMPTOMS AND SIGNS INVOLVING TH E MUSCU, TECHNIQUE: 3 views obtained. FINDINGS: There are 5 lumbar type vertebral bodies identified. The lumbar spine shows satisfactory alignment without evidence of acute fracture or dislocation. Vertebral body heights are within normal limits. Moderate multilevel degenerative disc space narrowing. The overlying soft tissue appears unr emarkable. IMPRESSION: No acute fracture or dislocation is seen in the lumbar spine.ICD 10 NO FRACTURE, INITIAL EVALUATION [facility], , 10/26/2024 5:37 PM
== END | disposition home or self-care (01) ==
LOC: RADXRMAIN 16:59
PROVIDERS: ATTEND Family Medicine
DX: R29.898 Other symptoms and signs involving the musculoskeletal system (principal); M51.369 Other intervertebral disc degeneration, lumbar region without mention of lumbar back pain or lower extremity pain
CPT/HCPCS: 72100; 73521

== ENCOUNTER → 2025-01-07 | Outpatient (CLI) | payer OTHER ==
[2025-01-07 15:44] LABS: ALT 22 U/L (8-44); AST 27 U/L (13-35); Albumin 4.0 g/dL (3.8-4.9); Albumin/Globulin Ratio 1.33 Ratio (1.60-3.17); Alkaline Phosphatase 135 U/L (41-126); Anion Gap 11.00 mmol/L (4.00-12.00); BUN/Creat Ratio 23.00 Ratio (12.00-20.00); Blood Urea Nitrogen 16.1 mg/dL (9.0-27.0); Calcium 8.8 mg/dL (8.7-10.3); Carbon Dioxide 27.0 mmol/L (21.6-31.8); Chloride 100 mmol/L (96-109); Cholesterol 183.00 mg/dL (0.00-200.00); Globulin 3.0 g/dL (1.6-3.3); Glucose 90 mg/dL (70-110); HDL Cholesterol 47.20 mg/dL (40.00-60.00); LDL Cholesterol,Calculated 109.6 mg/dL (0.0-131.0); Potassium 4.6 mmol/L (3.5-5.5); Sodium 138 mmol/L (135-145); Total Protein 7.0 g/dL (6.2-8.2); Triglycerides 131.00 mg/dL (0.00-149.00); VLDL Calculation 26.20 mg/dL (5.00-40.00)
[2025-01-07 16:10] LABS: HCT 42.1 % (37.2-46.3); HGB 13.9 g/dL (12.0-15.0); MCH 32.0 pg (27.0-32.0); MCHC 33.0 g/dL (32.0-37.0); MCV 97.0 FL (80.0-97.0); NRBC Per 100 WBC 0.03 X 10*3/uL (0.00-0.01); Platelet Count 223 X 10*3/uL (140-440); RBC 4.34 X 10*6/uL (4.10-5.20); RDW 11.7 % (11.5-14.5); WBC 5.07 X 10*3/uL (4.50-10.00)
[2025-01-07 16:11] LABS: Basophils # (A) 0.04 X 10*3/uL (0.00-0.10); Basophils % (A) 0.8 %; Eosinophils # (A) 0.09 X 10*3/uL (0.04-0.35); Eosinophils % (A) 1.8 %; Immature Grans, Automated 0.40 %; Lymphocytes # (A) 1.69 X 10*3/uL (0.90-5.00); Lymphocytes % (A) 33.3 %; Monocytes # (A) 0.41 X 10*3/uL (0.20-1.00); Monocytes % (A) 8.1 %; Neutrophils # (A) 2.82 X 10*3/uL (1.80-7.70); Neutrophils % (A) 55.6 %
== END | disposition home or self-care (01) ==
LOC: LABWHC1 11:00
PROVIDERS: ATTEND Family Medicine
DX: E11.65 Type 2 diabetes mellitus with hyperglycemia (principal); E78.2 Mixed hyperlipidemia; E66.01 Morbid (severe) obesity due to excess calories
CPT/HCPCS: 36415; 80053; 80061; 82043; 82306; 82570; 83036; 85025